=== PATIENT | female | born 1950 | race Caucasian/White ===

== ENCOUNTER 2016-07-21 01:09 | Inpatient (IN) | payer MEDICARE ==
[2016-07-21] VITALS (8 sets, daily range): BP systolic 137–174; BP diastolic 64–92
[~2016-07-21] VITALS: Ht 162.6 cm; Wt 60.3 kg
--- NOTE | ~2016-07-21 | O ---
[place], [place] OPERATIVE NOTE [id number] #: [id number] ROOM: 401 DOCTOR: LIDIA ROSALES,SUSSY BIRTHDATE: [birth year] DOS: GASTROENDOSCOPIC REPORT INDICATION: The patient has presented with chief complaint of anemia, suspected GI bleed. PROCEDURE: Today's procedure part of investigation is colonoscopy. PREMEDICATION: Versed and Diprivan. SCOPE: Olympus forward-viewing colonoscope 10L video. REPORT: After putting the patient in the left lateral position and after application of lubricant to rectal pouch and digital examination, scope was introduced; thereafter, under direct visualization, I advanced through the length of colon without difficulty. Colon mucosa and vascularity cannot be detaily examined due to the presence of retained contrast, which is whitish-tinged throughout the entire length of colon. I suspected that I was about to cecum where solid contrast and stool had mixture, did not allow detailed visualization despite the fact that large volume lavage. The patient extubated, tolerated procedure well. IMPRESSION: Retained contrast all the way to the cecum. PLAN AND DISCUSSION: I did not see any gross pathology in the colon to be noticeable. Her small bowel follow through study has been considered negative. There was no way to evaluate terminal ileum due to the retained contrast. I will organize outpatient colonoscopy in future for assessment of the terminal ileum. Thank you very much indeed for your kind referral. SUSSY MURILLO MD CM:OPRECORD:OPERATIVE NOTE [id number] SUSSY MURILLO MD 07/26/162146 interface
--- NOTE | ~2016-07-21 | O ---
[place], [place] OPERATIVE NOTE [id number] #: [id number] ROOM: 401 DOCTOR: LIDIA ROSALES,SUSSY BIRTHDATE: [birth year] DOS: GASTROENDOSCOPIC REPORT INDICATIONS: The patient has presented with multiple medical problems, among which epigastric distress, dyspepsia, anemia, suspected GI bleed. PROCEDURE: Today's procedure part of investigation is panendoscopy and colonoscopy. PREMEDICATION: Versed and Diprivan. SCOPE: Olympus forward-viewing colonoscope 10L video. REPORT: After putting the patient in the left lateral position and after application of lubricant to the scope, the scope was introduced. Thereafter, under direct visualization, I advanced through the length of esophagus without difficulty. Esophagus cervicothoracic distally within normal limits. Gastric pouch was entered. Gastritis was seen. Gastric erosions, particularly in the greater curvature appreciated, photographed, biopsied. Duodenal bulb, second and third part within normal limits. The patient was extubated, tolerated the procedure well. IMPRESSION: Gastric erosions and gastritis, status post biopsy. PLAN AND DISCUSSION: We are going to continue with Protonix 40 mg daily, soft diet due to the fact that the patient is edentulous that is going to be considered. We are going to proceed with colonoscopy. SUSSY MURILLO MD CM:OPRECORD:OPERATIVE NOTE [id number] SUSSY MURILLO MD 07/26/162137 interface
--- NOTE | ~2016-07-21 | CON ---
[place], [place] REPORT OF CONSULTATION NAME: NAVA MALLORY [facility] #: [id number] UNIT #: [id number] ROOM: 401 DOCTOR: ANGY MONDRAGON ED.D (ALMA) BIRTHDATE: [birth year] DOS: 07/23/2016 HISTORY OF PRESENT ILLNESS: The patient is a 65-year-old female referred by the hospitalist for evaluation of depression. At the present time, this patient is on the 4th floor at [facility]. This patient states that she is , her having in 03/2016, from bladder cancer. She has 3 daughters and 3 sons. She states her one sister, who is very ill with stage 4 colon cancer and she is very worried that she has colon cancer herself. She did find out she does not have cancer at this time about her bowel blockage and she was quite relieved about that. She is of an extremely anxious person and gets depressed quite easily. In addition to her sister being ill and her having , her mother just a few years ago from cancer. Her family physician is Dr. Jeffrey Terry. PAST MEDICAL HISTORY: Pertinent for acute kidney failure, hypertension, hypothyroidism, partial bowel obstruction, sepsis and major depression. MEDICATIONS: She is presently taking acetaminophen, Xanax, Zocor, Norvasc, Prevacid, Cymbalta and Mobic. She states she was self-medicating with the antidiarrheal medications such as Lomotil. SOCIAL HISTORY: She has no substance abuse issues. She was awake, alert and oriented in all 3 spheres. She does admit to being depressed. She states she has never been treated for depression, other than getting Cymbalta as prescribed by Dr. eTrry. I strongly suggested that she follow up with outpatient counseling once she is discharged from the hospital. She has a very strong support network and her grandson was visiting her the patient while I was there. DIAGNOSIS: Major depressive disorder, recurrent. RECOMMENDATIONS: 1. The patient should continue antidepressant medications. 2. The patient should follow up with outpatient counseling. Thank you very much for this consult. ANGY MONDRAGON ED.D CM:CONSTR:REPORT OF CONSULTATION 1604 07/24/16 1316 interface
--- NOTE | ~2016-07-21 | CON ---
[place], [place] REPORT OF CONSULTATION [id number] UNIT #: [id number] ROOM: 401 DOCTOR: LIDIA ROSALESSUSSY BIRTHDATE: [birth year] DOS: 07/24/2016 HISTORY OF PRESENT ILLNESS: The patient has presented with nausea, vomiting, epigastric distress, suspected of small-bowel obstruction. After the CT scan of the abdomen without contrast was done and moderate grade distal small-bowel obstruction with transit point of terminal ileum secondary to bowel wall thickening, inflammatory process versus Crohn's, fibrofatty infiltration concerns such as raised small bowel follow through was ordered after she has some resolution of the symptomatology and results are pending. At the time of admission, white blood cell was 14, H and H of 15 and 46. Lactic acid was 4.3. Her INR was 0.9. Comprehensive metabolic panel: BUN and creatinine of 11 and 1.9, GFR 40. Her electrolytes were balanced. Liver function tests normal except alkaline phosphatase 140. Acute abdominal series follow up. No acute cardiopulmonary, air fluid level. All has been recognized. CBC, normalized white blood cell to 8, H and H of 11 and 34. CEA was normal. Followup abdominal series was done. Normal bowel gas pattern was noticed. Therefore, she was a candidate for further investigation with the small bowel follow through. This is particularly in concern of her report of suspected terminal ileitis of any cost. PAST MEDICAL HISTORY: Associated with hypothyroidism, depression, anxiety, TIA. PAST SURGICAL HISTORY: Cholecystectomy, exploratory laparotomy in mid 80s for abdominal unexplained pain, cervical spine repair. The patient has history of hypertension, hypothyroidism and leukocytosis. SOCIAL HISTORY: Nonsmoker, nonalcohol consumer. FAMILY HISTORY: Ulcerative colitis and hypertension. ALLERGIES: CODEINE. MEDICATIONS: List has been reviewed. REVIEW OF SYSTEMS: HEENT: Denies double vision, blurred vision. RESPIRATORY: Denies shortness of breath. CARDIOVASCULAR: Denies chest pain. DIGESTIVE SYSTEM: Nausea, vomiting, which has since resolved with suspected small-bowel obstruction. PHYSICAL EXAMINATION: GENERAL: Nontoxic at the present time. VITAL SIGNS: Stable. HEENT: Edentulous. NECK: Supple, no thyromegaly. CHEST: Symmetric anatomy, equal expansion. No wheeze, no rhonchi. HEART: Normal sinus rhythm, no gallop, no murmur. ABDOMEN: Flat, soft. No hepato-organomegaly, no tenderness. Bowel sounds present in all quadrants. [place], [place] REPORT OF CONSULTATION NAME: NAVA MALLORY UNIT #: [id number] ROOM: 401 DOCTOR: SUSSY MURILLO MD BIRTHDATE: [birth year] EXTREMITIES: No cyanosis, no pedal edema. NEUROLOGIC: Alert, oriented to time, place and person. IMPRESSION AND PLAN: Resolved small-bowel obstruction. Clinically, no nausea, vomiting. Actually she feels hungry. She is passing gas. Distention of the bowel has been resolved. KUB has been normal on followup. White blood cell has been normal on followup. Small bowel follow through results are pending. As of this minute, I do not see any radiologic report, her potassium was 3.3 today. This is addressed with addition of potassium. OTHER ADJUNCTIVE DIAGNOSES: Hypertension, hypothyroidism, small-bowel obstruction partially and resolved. Other adjunctive diagnoses as outlined in the paragraph of past medical and surgical history. SUSSY MURILLO MD CM:CONSTR:REPORT OF CONSULTATION 1123 07/25/16 0039 interface
[~2016-07-21 01:09] MED LIST: CELEBREX200 MG PO; CELEXA10 MG PO; COREG3.125 MG PO; IBUPROFEN600 MG PO; LISINOPRIL10 M1 PO; PRAVACHOL80 MG PO; SOMA350 MG PO; SYNTHROID0.075 MG PO; TRIAVIL PO; VICODIN ES 7501 TAB PO; XANAX0.25 MG PO; ZOCOR20 MG PO; Zofran4 MG PO
[2016-07-21] MEDS ORDERED: PREVACID15 M1 PO (01:20)
[2016-07-21] MEDS ORDERED: NORVASC5 MG PO (01:20)
[2016-07-21] MEDS ORDERED: CYMBALTA60 MG PO (01:21)
[2016-07-21] MEDS ORDERED: MOBIC15 MG PO (01:21)
[2016-07-21 01:55] LABS: BASO # 0.1 10*3/uL (0.0-0.1); BASO % 0.6 % (0.0-1.0); EOS # 0.1 10*3/uL (0.0-0.4); EOS % 0.3 % (1.0-4.0); HEMATOCRIT 46.4 % (37.0-47.0); HEMOGLOBIN 15.4 g/dl (12.0-16.0); IG # 0.1 10*3/uL (0.0-0.1); LYMPH # 3.1 10*3/uL (1.3-4.4); LYMPH % 21.5 % (27.0-41.0); MEAN CELL VOLUME 88.9 fl (81.0-99.0); MEAN CORPUSCULAR HGB 29.5 pg (27.0-31.0); MEAN CORPUSCULAR HGB CONC 33.2 g/dl (33.0-37.0); MEAN PLATELET VOLUME 9.8 fl (9.6-12.3); MONO # 0.6 10*3/uL (0.1-1.0); MONO % 4.3 % (3.0-9.0); NEUT # 10.5 10*3/uL (2.3-7.9); PLATELET COUNT AUTOMATED 391 10*3/uL (130-400); RED BLOOD COUNT 5.22 10*6/uL (4.10-5.10); WHITE BLOOD COUNT 14.4 10*3/uL (4.8-10.8)
[2016-07-21 01:55] LABS: BILIRUBIN 1+ (NEGATIVE); BLOOD NEGATIVE (NEGATIVE); CLARITY CLEAR (CLEAR); COLOR YELLOW (YELLOW); GLUCOSE NEGATIVE (NEGATIVE); KETONE TRACE (NEGATIVE); LEUKO ESTERASE NEGATIVE (NEGATIVE); NITRITE NEGATIVE (NEGATIVE); PH 5.5 (5.0-9.0); PROTEIN 1+ (NEGATIVE); SPECIFIC GRAVITY 1.025 (1.005-1.030); UROBILINOGEN 0.2 E.U./dl (0.2-1.0)
[2016-07-21 02:05] LABS: INTERNATIONAL NORM RATIO 0.9 (2.0-3.5); PROTHROMBIN TIME 9.9 SECONDS (9.0-12.4)
[2016-07-21 02:12] LABS: ALBUMIN 4.7 gm/dl (3.1-4.5); ALKALINE PHOSPHATASE 134 U/L (45-117); BILIRUBIN, TOTAL 0.5 mg/dl (0.2-1.0); BUN 11 mg/dl (7-24); CARBON DIOXIDE 25 mmol/L (21-32); CHLORIDE 95 mmol/L (98-107); EST GLOM FILT AFRICAN AMERICAN 40 ml/min; GLUCOSE 118 mg/dL (65-99); MAGNESIUM 2.2 mg/dL (1.5-2.1); POTASSIUM 4.1 mmol/L (3.5-5.1); SGOT/AST 28 IU/L (3-35); SGPT/ALT 25 U/L (12-78); SODIUM 135 mmol/L (136-145); TOTAL PROTEIN 8.8 gm/dL (6.4-8.2)
[2016-07-21 02:13] LABS: C-REACTIVE PROTEIN < 0.29 MG/DL (0-0.3); TROPONIN I < 0.015 ng/ml (<0.045)
[2016-07-21 02:14] LABS: HYALINE CAST 35-40
[2016-07-21 02:15] LABS: BACTERIA TRACE; EPITHELIAL CELLS 20-25; URINE REFLEX COMMENT NO (NO)
[2016-07-21 03:52] LABS: LA>2 REFLEX 2 HR DRAW NOW
[2016-07-21] MEDS ORDERED: PAIN RELIEF EX500 MG PO (05:47)
[2016-07-22] VITALS: BP 165/85
[2016-07-22 06:36] LABS: BASO % 0.2 % (0.0-1.0); EOS % 0.1 % (1.0-4.0); LYMPH # 1.6 10*3/uL (1.3-4.4); LYMPH % 18.7 % (27.0-41.0); MEAN CELL VOLUME 89.3 fl (81.0-99.0); MEAN CORPUSCULAR HGB CONC 33.6 g/dl (33.0-37.0); MEAN PLATELET VOLUME 10.2 fl (9.6-12.3); MONO # 0.4 10*3/uL (0.1-1.0); MONO % 4.5 % (3.0-9.0); NEUT # 6.6 10*3/uL (2.3-7.9); NEUT % 76.2 % (47.0-73.0); RED BLOOD COUNT 3.83 10*6/uL (4.10-5.10); RED CELL DISTRI WIDTH 12.7 % (0-14.5); WHITE BLOOD COUNT 8.7 10*3/uL (4.8-10.8)
[2016-07-22 06:49] LABS: HEMATOCRIT 34.2 % (37.0-47.0); HEMOGLOBIN 11.5 g/dl (12.0-16.0); PLATELET COUNT AUTOMATED 267 10*3/uL (130-400)
[2016-07-22 07:03] LABS: ALBUMIN 3.2 gm/dl (3.1-4.5); ALKALINE PHOSPHATASE 90 U/L (45-117); BILIRUBIN, TOTAL 0.3 mg/dl (0.2-1.0); BUN 6 mg/dl (7-24); CARBON DIOXIDE 22 mmol/L (21-32); CHLORIDE 103 mmol/L (98-107); EST GLOM FILT AFRICAN AMERICAN > 60 ml/min; GLUCOSE 97 mg/dL (65-99); POTASSIUM 3.6 mmol/L (3.5-5.1); SGOT/AST 24 IU/L (3-35); SGPT/ALT 18 U/L (12-78); SODIUM 134 mmol/L (136-145); TOTAL PROTEIN 6.2 gm/dL (6.4-8.2)
[2016-07-22 08:00] VITALS: BP 167/85
[2016-07-22 12:00] VITALS: BP 135/54
[2016-07-22 16:00] VITALS: BP 142/68
[2016-07-23] VITALS: BP 146/67
[2016-07-23 08:00] VITALS: BP 146/89
[2016-07-23 08:22] LABS: BASO # 0.1 10*3/uL (0.0-0.1); BASO % 0.7 % (0.0-1.0); EOS % 0.1 % (1.0-4.0); HEMATOCRIT 30.5 % (37.0-47.0); HEMOGLOBIN 10.3 g/dl (12.0-16.0); LYMPH # 2.5 10*3/uL (1.3-4.4); LYMPH % 34.1 % (27.0-41.0); MEAN CELL VOLUME 88.4 fl (81.0-99.0); MEAN CORPUSCULAR HGB 29.9 pg (27.0-31.0); MEAN CORPUSCULAR HGB CONC 33.8 g/dl (33.0-37.0); MEAN PLATELET VOLUME 9.9 fl (9.6-12.3); MONO # 0.5 10*3/uL (0.1-1.0); MONO % 6.5 % (3.0-9.0); NEUT # 4.3 10*3/uL (2.3-7.9); NEUT % 58.5 % (47.0-73.0); PLATELET COUNT AUTOMATED 243 10*3/uL (130-400); RED BLOOD COUNT 3.45 10*6/uL (4.10-5.10); WHITE BLOOD COUNT 7.3 10*3/uL (4.8-10.8)
[2016-07-23 08:37] LABS: ALKALINE PHOSPHATASE 80 U/L (45-117); BILIRUBIN, TOTAL 0.3 mg/dl (0.2-1.0); BUN 5 mg/dl (7-24); CARBON DIOXIDE 25 mmol/L (21-32); CHLORIDE 106 mmol/L (98-107); EST GLOM FILT AFRICAN AMERICAN > 60 ml/min; GLUCOSE 86 mg/dL (65-99); POTASSIUM 3.2 mmol/L (3.5-5.1); SGOT/AST 28 IU/L (3-35); SGPT/ALT 18 U/L (12-78); SODIUM 136 mmol/L (136-145); TOTAL PROTEIN 5.7 gm/dL (6.4-8.2)
[2016-07-23 12:00] VITALS: BP 136/78
[2016-07-23 16:00] VITALS: BP 104/44
[2016-07-23 20:00] VITALS: BP 136/86
[2016-07-24] VITALS: BP 140/62
[2016-07-24 07:10] LABS: BASO # 0.1 10*3/uL (0.0-0.1); BASO % 1.2 % (0.0-1.0); EOS % 0.2 % (1.0-4.0); HEMATOCRIT 31.3 % (37.0-47.0); HEMOGLOBIN 10.5 g/dl (12.0-16.0); LYMPH # 2.5 10*3/uL (1.3-4.4); LYMPH % 41.8 % (27.0-41.0); MEAN CELL VOLUME 88.7 fl (81.0-99.0); MEAN CORPUSCULAR HGB 29.7 pg (27.0-31.0); MEAN CORPUSCULAR HGB CONC 33.5 g/dl (33.0-37.0); MEAN PLATELET VOLUME 10.3 fl (9.6-12.3); MONO # 0.5 10*3/uL (0.1-1.0); MONO % 7.5 % (3.0-9.0); PLATELET COUNT AUTOMATED 224 10*3/uL (130-400); RED BLOOD COUNT 3.53 10*6/uL (4.10-5.10); RED CELL DISTRI WIDTH 13.2 % (0-14.5)
[2016-07-24 07:37] LABS: BUN 4 mg/dl (7-24); CARBON DIOXIDE 24 mmol/L (21-32); CHLORIDE 105 mmol/L (98-107); EST GLOM FILT AFRICAN AMERICAN > 60 ml/min; GLUCOSE 77 mg/dL (65-99); POTASSIUM 3.3 mmol/L (3.5-5.1); SODIUM 136 mmol/L (136-145)
[2016-07-24 08:00] VITALS: BP 164/88
[2016-07-24 12:00] VITALS: BP 152/79
[2016-07-24 16:00] VITALS: BP 154/89
[2016-07-24 20:00] VITALS: BP 132/60
[2016-07-25] VITALS: BP 103/52
[2016-07-25 07:26] LABS: BUN 4 mg/dl (7-24); CARBON DIOXIDE 27 mmol/L (21-32); CHLORIDE 105 mmol/L (98-107); EST GLOM FILT AFRICAN AMERICAN > 60 ml/min; GLUCOSE 73 mg/dL (65-99); POTASSIUM 4.1 mmol/L (3.5-5.1); SODIUM 140 mmol/L (136-145)
[2016-07-25 08:00] VITALS: BP 131/79
[2016-07-25 12:00] VITALS: BP 182/90
[2016-07-25 16:00] VITALS: BP 141/83
[2016-07-25 20:00] VITALS: BP 168/79
[2016-07-26] VITALS (9 sets, daily range): BP systolic 104–167; BP diastolic 55–87
[2016-07-26 07:10] LABS: BASO # 0.1 10*3/uL (0.0-0.1); BASO % 0.6 % (0.0-1.0); EOS # 0.1 10*3/uL (0.0-0.4); EOS % 0.7 % (1.0-4.0); HEMOGLOBIN 12.4 g/dl (12.0-16.0); LYMPH # 2.3 10*3/uL (1.3-4.4); LYMPH % 28.1 % (27.0-41.0); MEAN CELL VOLUME 88.7 fl (81.0-99.0); MEAN CORPUSCULAR HGB 29.3 pg (27.0-31.0); MEAN CORPUSCULAR HGB CONC 33.1 g/dl (33.0-37.0); MEAN PLATELET VOLUME 10.4 fl (9.6-12.3); MONO # 0.6 10*3/uL (0.1-1.0); MONO % 7.1 % (3.0-9.0); NEUT # 5.1 10*3/uL (2.3-7.9); NEUT % 63.3 % (47.0-73.0); PLATELET COUNT AUTOMATED 285 10*3/uL (130-400); RED BLOOD COUNT 4.23 10*6/uL (4.10-5.10); RED CELL DISTRI WIDTH 13.3 % (0-14.5); WHITE BLOOD COUNT 8.1 10*3/uL (4.8-10.8)
[2016-07-26 07:13] LABS: HEMATOCRIT 37.5 % (37.0-47.0)
[2016-07-27] VITALS: BP 145/87
[2016-07-27 07:00] LABS: BASO # 0.1 10*3/uL (0.0-0.1); BASO % 0.9 % (0.0-1.0); EOS # 0.1 10*3/uL (0.0-0.4); HEMATOCRIT 32.8 % (37.0-47.0); HEMOGLOBIN 10.9 g/dl (12.0-16.0); LYMPH # 2.9 10*3/uL (1.3-4.4); MEAN CELL VOLUME 89.9 fl (81.0-99.0); MEAN CORPUSCULAR HGB 29.9 pg (27.0-31.0); MEAN CORPUSCULAR HGB CONC 33.2 g/dl (33.0-37.0); MEAN PLATELET VOLUME 10.2 fl (9.6-12.3); MONO # 0.5 10*3/uL (0.1-1.0); MONO % 7.8 % (3.0-9.0); NEUT # 3.1 10*3/uL (2.3-7.9); NEUT % 46.9 % (47.0-73.0); PLATELET COUNT AUTOMATED 267 10*3/uL (130-400); RED BLOOD COUNT 3.65 10*6/uL (4.10-5.10); RED CELL DISTRI WIDTH 13.3 % (0-14.5); WHITE BLOOD COUNT 6.7 10*3/uL (4.8-10.8)
[2016-07-27 07:31] LABS: ALKALINE PHOSPHATASE 81 U/L (45-117); BILIRUBIN, TOTAL 0.3 mg/dl (0.2-1.0); BUN 3 mg/dl (7-24); CARBON DIOXIDE 24 mmol/L (21-32); CHLORIDE 105 mmol/L (98-107); EST GLOM FILT AFRICAN AMERICAN > 60 ml/min; GLUCOSE 91 mg/dL (65-99); MAGNESIUM 1.9 mg/dL (1.5-2.1); POTASSIUM 3.1 mmol/L (3.5-5.1); SGOT/AST 17 IU/L (3-35); SGPT/ALT 15 U/L (12-78); SODIUM 141 mmol/L (136-145); TOTAL PROTEIN 5.8 gm/dL (6.4-8.2)
[2016-07-27 08:00] VITALS: BP 150/68
[2016-07-27 12:00] VITALS: BP 144/70
[2016-07-27] MEDS ORDERED: LOSARTAN POTASS50 M1 PO (14:07)
[2016-07-27] MEDS ORDERED: SYNTHROID RP0.1 MG PO (14:08)
== END 2016-07-27 15:05 | disposition home or self-care (01) | DRG 871 ==
LOC: ED 01:09 → 4E 03:39 → EDHOLD 03:39 → 4E 03:57
PROVIDERS: Emergency Medicine; Emergency Medicine Emergency Medical Services; Family Medicine; Internal Medicine; Internal Medicine Hospice and Palliative Medicine
PROC: 0DB68ZX Excision of Stomach, Via Natural or Artificial Opening Endoscopic, Diagnostic (ICD-10-PCS; principal; 2016-07-26)
PROC: 0DJD8ZZ Inspection of Lower Intestinal Tract, Via Natural or Artificial Opening Endoscopic (ICD-10-PCS; principal; 2016-07-26)
DX: A41.9 Sepsis, unspecified organism (principal); N17.0 Acute kidney failure with tubular necrosis; E87.2 Acidosis; K56.60 Unspecified intestinal obstruction; E44.1 Mild protein-calorie malnutrition; M50.20 Other cervical disc displacement, unspecified cervical region; E87.1 Hypo-osmolality and hyponatremia; F33.9 Major depressive disorder, recurrent, unspecified; E83.41 Hypermagnesemia; E03.9 Hypothyroidism, unspecified; I10 Essential (primary) hypertension; D64.9 Anemia, unspecified; E87.6 Hypokalemia; M51.24 Other intervertebral disc displacement, thoracic region; K29.70 Gastritis, unspecified, without bleeding; K25.9 Gastric ulcer, unspecified as acute or chronic, without hemorrhage or perforation; K59.00 Constipation, unspecified; F41.9 Anxiety disorder, unspecified; Z86.73 Personal history of transient ischemic attack (TIA), and cerebral infarction without residual deficits; Z80.0 Family history of malignant neoplasm of digestive organs; Z90.49 Acquired absence of other specified parts of digestive tract; Z82.49 Family history of ischemic heart disease and other diseases of the circulatory system; Z83.79 Family history of other diseases of the digestive system; Z83.49 Family history of other endocrine, nutritional and metabolic diseases; Z88.5 Allergy status to narcotic agent; Z88.8 Allergy status to other drugs, medicaments and biological substances; Z79.1 Long term (current) use of non-steroidal anti-inflammatories (NSAID); Z79.899 Other long term (current) drug therapy; Z68.22 Body mass index [BMI] 22.0-22.9, adult

== ENCOUNTER 2017-10-13 13:30 | Emergency (ER) | payer MEDICARE ==
[~2017-10-13] VITALS: Ht 167.6 cm; Wt 63.5 kg
--- NOTE | ~2017-10-13 | EKG ---
[place], [place] ELECTROCARDIOGRAM REPORT NAME: NAVA MALLORY UNIT #: [id number] ROOM: DOCTOR: EPIPHANY DRAFT REPORT BIRTHDATE: [birth year] [facility] Test Date: 2017-10-13 Test Time: 13:43:22 Pat Name: NAVA MALLORY Department: Room: Gender: F Adult Literacy Teacher: : 1950 Requested By: HENRY ENAMORADO Order Number: [id number] Reading MD: Bruce Ingram MD Measurements Intervals [place] Rate: 68 P: 39 [place]: 148 QRS: 43 QRSD: 91 T: 32 QT: 417 QTc: 444 Interpretive Statements Sinus rhythm Electronically Signed On 10-13-2017 19:21:48 PDT by Bruce Ingram MD CM:EKGRPT:ELECTROCARDIOGRAM REPORT 1343 HENRY GOODSON DRAFT REPORT HENRY ENAMORADO M.D.
[~2017-10-13 13:30] MED LIST changes: +CYMBALTA60 MG PO; +LOSARTAN POTASS50 M1 PO; +MOBIC15 MG PO; +NORVASC5 MG PO; +PAIN RELIEF EX500 MG PO; +PREVACID15 M1 PO; +SYNTHROID RP0.1 MG PO
[2017-10-13 13:52] LABS: BASO # 0.1 10*3/uL (0.0-0.1); BASO % 0.9 % (0.0-1.0); EOS # 0.1 10*3/uL (0.0-0.4); EOS % 0.9 % (1.0-4.0); HEMATOCRIT 35.8 % (37.0-47.0); HEMOGLOBIN 11.7 g/dl (12.0-16.0); LYMPH # 2.2 10*3/uL (1.3-4.4); LYMPH % 39.6 % (27.0-41.0); MEAN CELL VOLUME 89.5 fl (81.0-99.0); MEAN CORPUSCULAR HGB 29.3 pg (27.0-31.0); MEAN CORPUSCULAR HGB CONC 32.7 g/dl (33.0-37.0); MEAN PLATELET VOLUME 9.4 fl (9.6-12.3); MONO # 0.4 10*3/uL (0.1-1.0); MONO % 7.8 % (3.0-9.0); NEUT # 2.8 10*3/uL (2.3-7.9); NEUT % 50.6 % (47.0-73.0); PLATELET COUNT AUTOMATED 241 10*3/uL (130-400); RED CELL DISTRI WIDTH 12.3 % (0-14.5); WHITE BLOOD COUNT 5.5 10*3/uL (4.8-10.8)
[2017-10-13 14:10] LABS: ALBUMIN 3.5 gm/dl (3.1-4.5); ALKALINE PHOSPHATASE 110 U/L (45-117); BUN 10 mg/dl (7-24); CHLORIDE 107 mmol/L (98-107); CREATININE 1.01 mg/dL (0.55-1.02); POTASSIUM 4.2 mmol/L (3.5-5.1); SGOT/AST 17 IU/L (3-35); SGPT/ALT 23 U/L (12-78); SODIUM 139 mmol/L (136-145); TOTAL PROTEIN 6.9 gm/dL (6.4-8.2)
[2017-10-13 15:10] LABS: BILIRUBIN NEGATIVE (NEGATIVE); BLOOD NEGATIVE (NEGATIVE); CLARITY CLEAR (CLEAR); COLOR YELLOW (YELLOW); GLUCOSE NEGATIVE (NEGATIVE); KETONE NEGATIVE (NEGATIVE); LEUKO ESTERASE NEGATIVE (NEGATIVE); NITRITE NEGATIVE (NEGATIVE); UROBILINOGEN 0.2 E.U./dl (0.2-1.0)
[2017-10-13 15:23] LABS: BACTERIA 2+; RBC 0-2 rbc/hpf (0-2)
== END 2017-10-13 16:19 | disposition home or self-care (01) ==
LOC: ED 13:30
PROVIDERS: Emergency Medicine
DX: R55 Syncope and collapse (principal); E03.9 Hypothyroidism, unspecified; I10 Essential (primary) hypertension; Z88.6 Allergy status to analgesic agent; Z88.8 Allergy status to other drugs, medicaments and biological substances; Z79.899 Other long term (current) drug therapy; Z86.73 Personal history of transient ischemic attack (TIA), and cerebral infarction without residual deficits

== ENCOUNTER → 2017-10-14 | Outpatient (CLI) | payer MEDICARE ==
--- NOTE | ~2017-10-14 | HM ---
[place], [place] HOLTER MONITOR REPORT [id number] UNIT #: [id number] ROOM: DOCTOR: MIKE BARLOW MD BIRTHDATE: [birth year] DOS: 10/17/2017 The study was recorded from 10/14/2017 through 10/16/2017. It was analyzed, interpreted and dictated on 10/17/2017. INDICATIONS: Palpitations and syncope. FINDINGS: The patient was monitored utilizing a Holter device for 48 hours. The basic rhythm was normal sinus. Average heart rate was 78 with heart rates ranging in sinus rhythm from 57-135 beats per minute. No ventricular arrhythmias were noted. There was no ventricular tachycardia or premature ventricular contractions. Occasional premature atrial contractions were noted including one 3-beat run of PACs. This occurred at 1:21 p.m. There was no SVT and no prolonged pause noted. The patient did not make any dairy entries. IMPRESSION: Essentially normal 48-hour Holter monitor with occasional premature atrial contractions and one 3-beat run of PACs recorded. MIKE BARLOW MD CM:HOLTER:HOLTER MONITOR REPORT 1622 1659 MIKE BARLOW MD
== END | disposition home or self-care (01) ==
LOC: CARD 10:09
DX: R00.2 Palpitations (principal); R55 Syncope and collapse

== ENCOUNTER → 2018-01-07 | Outpatient (CLI) | payer MEDICARE | END | disposition home or self-care (01) | LOC: MAMMO 08:33 | DX: Z12.31 Encounter for screening mammogram for malignant neoplasm of breast (principal) ==

== ENCOUNTER 2018-07-11 | Inpatient (IN) | payer MEDICARE ==
[~2018-07-11] VITALS: Ht 162.6 cm; Wt 60.0 kg
[2018-07-11] VITALS (7 sets, daily range): BP systolic 136–157; BP diastolic 61–89
[~2018-07-11] MED LIST changes: +ULTRAM50 MG PO; +ZOFRAN4 MG PO
--- NOTE | ~2018-07-11 | EKG ---
[place], [place] ELECTROCARDIOGRAM REPORT NAME: NAVA MALLORY UNIT #: [id number] ROOM: [facility] DOCTOR: HAMZAH DRAFT REPORT BIRTHDATE: [birth year] [facility] Test Date: 2018-07-11 Test Time: 12:26:42 Pat Name: NAVA MALLORY Department: Room: [facility] 1 Gender: F Fisher Diving: MARIO : 1950 Requested By: IZABELLA MULTANI Order Number: [id number] Reading MD: Luther Maravilla Measurements Intervals [place] Rate: 90 P: 56 [place]: 168 QRS: 67 QRSD: 97 T: 46 QT: 419 QTc: 513 Interpretive Statements Sinus rhythm RSR' in V1 or V2, right VCD or RVH Nonspecific T abnormalities, anterior leads Prolonged QT interval Compared to ECG 10/13/2017 13:43:22 Right ventricular hypertrophy now present RSR' in V1 or V2 now present T-wave abnormality now present Prolonged QT interval now present Electronically Signed On 07-11-2018 11:02:22 PDT by Luther Maravilla CM:EKGRPT:ELECTROCARDIOGRAM REPORT 1226 1102 IZABELLA OQUENDO DRAFT REPORT IZABELLA MULTANI DO
--- NOTE | ~2018-07-11 | CON ---
[place], [place] REPORT OF CONSULTATION NAME: NAVA MALLORY [facility] #: [id number] UNIT #: [id number] ROOM: 517 DOCTOR: GRAHAM CAMERON MD BIRTHDATE: [birth year] DOS: 07/12/2018 REASON FOR CONSULTATION: Recurrent syncope. HISTORY OF PRESENT ILLNESS: The patient is a 67-year-old patient with history of hypertension, acid reflux, admitted for nausea, vomiting. Apparently the patient had near syncope like recently and sustained a right rib fracture. She was seen in the Emergency Room on and was discharged home on tramadol. The patient noted to have significant nausea and vomiting and was presented to the hospital. Cardiology consulted for her "recurrent syncope". Actually the patient denies any actual syncopal attacks since she felt like her neck area gets tight and she felt weak and her knees gave out and she fell to the ground, but she did not lose her consciousness. No bladder or bowel incontinence. Prior to this, she denies any chest pain, shortness of breath or palpitations. Otherwise, she denies any exertional chest pains or exertional shortness of breath. No neurologic symptoms. No genitourinary symptoms, the patient is complaining of some left-sided chest wall pain. No fever, chills, no hemoptysis. Her nausea and vomiting is much better now after therapy. REVIEW OF SYSTEMS: Ten systems negative except as mentioned above. PAST MEDICAL HISTORY: History of hypertension, hypothyroidism, back pain, history of TIA, anxiety and depression. PAST SURGICAL HISTORY: History of cholecystectomy, cervical spine surgery. SOCIAL HISTORY: The patient does not drink alcohol. Does not smoke and does not use illicit drugs. ALLERGIES: Reviewed. HOME MEDICATIONS: Reviewed. FAMILY HISTORY: Mother in her 80s from cancer. History of hypertension. Father in his 60s from lung cancer and had hypertension. HOME MEDICATIONS: Reviewed. PHYSICAL EXAMINATION: VITAL SIGNS: Blood pressure 138/72, pulse 95, respiration is 18, weight 60.4 kilos, BMI 22.7. GENERAL: Alert, comfortable, in no acute distress. HEAD AND NECK: Neck supple, no distended neck veins, no carotid bruit. EENT: Pupils round, equal. No jaundice. Tongue was moist and pharynx clear. NECK: Supple, no distended neck veins, no carotid bruit. CHEST: Symmetrical. The patient has mild tenderness in the mid axillary area. HEART: Regular rhythm, no S3. Grade 1/6 systolic murmur. LUNGS: Clear to auscultation bilaterally. ABDOMEN: Benign, nontender. Bowel sounds normal. EXTREMITIES: Showed no edema. Distal pulses palpable. [place], [place] REPORT OF CONSULTATION NAME: NAVA MALLORY UNIT #: [id number] ROOM: [facility] DOCTOR: NISHA ROSALES,GRAHAM BIRTHDATE: [birth year] SKIN: Warm and dry. No cyanosis, no clubbing. RECTAL: Deferred. GENITOURINARY: Deferred. NEUROLOGIC: The patient is alert, oriented. No focal neurologic deficit. REVIEW OF THE DIAGNOSTIC TESTS: EKG, labs and imaging studies: EKG showed normal sinus rhythm with T-wave inversion V1 and V2. CBC, chemistry, cardiac enzymes reviewed. Cardiac troponins are negative x 3, CPK 297, CK-MB 2.4. IMPRESSION: 1. Near syncopal episode. 2. Hypertension. 3. Nausea and vomiting, possibly related to medication. 4. Acid reflux. 5. Rib fracture due to recent fall. 6. Hypothyroidism. RECOMMENDATIONS: The patient blood pressure and heart rate are stable. She denies any exertional chest pain, shortness of breath. She wanted to go home today. I would recommend a 2-week cardiac event monitor to rule out shelley or tachyarrhythmias due to her recurrent or near syncopal attacks. Lexiscan stress test to rule out ischemia due to her CAD risk factors and abnormal EKG. Recommend 2D echo for LV function and valvular function due to her hypertension and also her heart murmur. The patient may need implantable loop recorder. The event monitor is unremarkable. No family at bedside at the time of my examination. We will arrange for outpatient above recommended tests since the patient wanted to go home today. She is advised to watch her blood pressure, heart rate and avoid any dehydration at home. The above treatment plan was discussed with the patient and all questions were answered. GRAHAM CAMERON MD CM:CONSTR:REPORT OF CONSULTATION 2126 07/13/18 0338 interface
[2018-07-11] MEDS ORDERED: CELEBREX50 MG PO (00:09)
[2018-07-11 00:45] LABS: BASO % 0.4 % (0.0-1.0); EOS % 0.3 % (1.0-4.0); HEMATOCRIT 38.6 % (37.0-47.0); HEMOGLOBIN 13.2 g/dl (12.0-16.0); LYMPH # 1.4 10*3/uL (1.3-4.4); LYMPH % 17.6 % (27.0-41.0); MEAN CELL VOLUME 89.1 fl (81.0-99.0); MEAN CORPUSCULAR HGB 30.5 pg (27.0-31.0); MEAN CORPUSCULAR HGB CONC 34.2 g/dl (33.0-37.0); MEAN PLATELET VOLUME 9.8 fl (9.6-12.3); MONO # 0.4 10*3/uL (0.1-1.0); MONO % 5.2 % (3.0-9.0); NEUT # 5.9 10*3/uL (2.3-7.9); NEUT % 76.2 % (47.0-73.0); PLATELET COUNT AUTOMATED 309 10*3/uL (130-400); RED BLOOD COUNT 4.33 10*6/uL (4.10-5.10); RED CELL DISTRI WIDTH 13.2 % (0-14.5); WHITE BLOOD COUNT 7.7 10*3/uL (4.8-10.8)
[2018-07-11 01:00] LABS: ALBUMIN 3.9 gm/dl (3.1-4.5); ALKALINE PHOSPHATASE 127 U/L (45-117); BUN 9 mg/dl (7-24); CHLORIDE 105 mmol/L (98-107); CREATININE 0.99 mg/dL (0.55-1.02); LIPASE 53 U/L (73-393); POTASSIUM 3.7 mmol/L (3.5-5.1); SGOT/AST 29 IU/L (3-35); SGPT/ALT 34 U/L (12-78); SODIUM 137 mmol/L (136-145); TOTAL PROTEIN 7.8 gm/dL (6.4-8.2)
--- NOTE | 2018-07-11 01:02 | NUR ---
INFUSION OF 500NS INITIATED BY EMS COMPLETED.1L NS INITIATED PER EMAR.
--- NOTE | 2018-07-11 01:43 | NUR ---
PT REPORTS SUDDEN ONSET SHAKING.PT PROVIDED WARM BLANKETS.MEDICATED PER EMAR WITH XANAX.STEPHANIE LAURA NOTIFIED.
--- NOTE | 2018-07-11 03:00 | NUR ---
Time: 299 A 67 year old FEMALE admitted to 5E under services of TANESHA BASS DO. Pt. arrived via ambulance from ER. Chief complaint: INTRACTABLE NAUSEA AND VOMITING. RONAK MORAN
--- NOTE | 2018-07-11 11:00 | NUR ---
PHYSICIAN NOTIFIED THAT PT MED REC NEEDS UPDATED, PT REQUESTING SOMA AND XANAX. AWAITING NEW ORDERS AT THIS TIME.
--- NOTE | 2018-07-11 12:15 | NUR ---
PT GIVEN TORADOL AT THIS TIME THROUGH IV TO RAC. IV SITE IS HARD TO FLUSH BUT GIVING SMALL AMOUNT OF BLOOD RETURN. UPON TRYING TO RUN PHENERGAN VIA SYRINGE PUMP, SYRINGE PUMP CONTINUES TO ALARM HIGH PRESSURE. PT REQUESTS THAT IV SITE TO RAC BE DISCONTINUED, WILL ATTEMPT NEW IV SITE.
--- NOTE | 2018-07-11 12:45 | NUR ---
MULTIPLE ATTEMPTS TO OBTAIN IV SITE BY 3 NURSES INEFFECTIVE. PT REQUESTS NOT TO BE STUCK AGAIN FOR IV SITE. PHYSICIAN NOTIFIED. NEW ORDERS OBTAINED FOR PO ZOFRAN AND IV PHENERGAN PUT ON HOLD AT THIS TIME.
[2018-07-11] MEDS ORDERED: AMITRIPTYLINE50 MG PO (12:55)
--- NOTE | 2018-07-11 14:08 | NUR ---
PT GIVEN SOMA AND XANAX AT THIS TIME FOR CHRONIC BACK PAIN AND ANXIETY. WILL MONITOR FOR EFFECTIVENESS. CALL LIGHT IN REACH.
--- NOTE | 2018-07-11 14:50 | NUR ---
PT GIVEN ZOFRAN PO FOR C/O NAUSEA. WILL MONITOR FOR EFFECTIVENESS.
--- NOTE | 2018-07-11 15:00 | NUR ---
PT STATES THAT SOMA AND XANAX EFFECTIVE AT THIS TIME.
--- NOTE | 2018-07-11 15:50 | NUR ---
ZOFRAN EFFECTIVE PER PT.
--- NOTE | 2018-07-11 22:52 | NUR ---
PATIENT VERY TEARFUL, AND AXIOUS. MEDICATED WITH XANEX.PATIENT ALSO MEDICATED WITH SOMA PER REQUEST. WILL CONTINUE TO MONITOR.
[2018-07-12] VITALS: BP 144/66
--- NOTE | 2018-07-12 00:26 | NUR ---
PATIENT C/O NAUSEA, UNABLE TO SLEEP AND A HEADACHE.MEDICATED WITH TYLENOL, ZOFRAN AND RESTORIL. WILL CHECK EFFECTIVENESS.
--- NOTE | 2018-07-12 04:00 | NUR ---
PATIENT SLEEPING, RESTORIL EFFECTIVE. NO SIGNS OF DISTRESS, RESPIRATIONS EASY, NON LABORED. BED IN LOWEST POSITION,CALL LIGHT WITHIN REACH. WILL CONTINUE TO MONITOR.
--- NOTE | 2018-07-12 05:24 | NUR ---
PATIENT C/O HEADACHE.MEDICATED WITH TYLENOL. WILL CONTINUE TO MONITOR
[2018-07-12 06:21] LABS: BASO # 0.1 10*3/uL (0.0-0.1); BASO % 0.6 % (0.0-1.0); EOS # 0.1 10*3/uL (0.0-0.4); EOS % 0.6 % (1.0-4.0); HEMATOCRIT 38.4 % (37.0-47.0); HEMOGLOBIN 12.9 g/dl (12.0-16.0); LYMPH # 3.5 10*3/uL (1.3-4.4); LYMPH % 40.6 % (27.0-41.0); MEAN CELL VOLUME 90.6 fl (81.0-99.0); MEAN CORPUSCULAR HGB 30.4 pg (27.0-31.0); MEAN CORPUSCULAR HGB CONC 33.6 g/dl (33.0-37.0); MONO # 0.7 10*3/uL (0.1-1.0); MONO % 8.6 % (3.0-9.0); NEUT # 4.3 10*3/uL (2.3-7.9); NEUT % 49.4 % (47.0-73.0); PLATELET COUNT AUTOMATED 294 10*3/uL (130-400); RED BLOOD COUNT 4.24 10*6/uL (4.10-5.10); RED CELL DISTRI WIDTH 13.6 % (0-14.5); WHITE BLOOD COUNT 8.6 10*3/uL (4.8-10.8)
[2018-07-12 06:38] LABS: BUN 12 mg/dl (7-24); CHLORIDE 107 mmol/L (98-107); CREATININE 0.95 mg/dL (0.55-1.02); PHOSPHOROUS 3.2 mg/dL (2.5-4.9); POTASSIUM 3.3 mmol/L (3.5-5.1); SODIUM 137 mmol/L (136-145)
[2018-07-12 08:00] VITALS: BP 138/72
[2018-07-12] MEDS ORDERED: AMITRIPTYLINE100 M1 PO (08:41)
--- NOTE | 2018-07-12 09:37 | NUR ---
DR. CAMERON'S ANSWERING SERVICE NOTIFIED OF CONSULT RE: RECURRENT SYNCOPE
--- NOTE | 2018-07-12 10:20 | NUR ---
ADMINISTERED PO ZOFRAN X 1 ORDERED FOR NAUSEA ASSOCIATED WITH TAKING PO POTASSIUM SUPPLEMENTS- PATIENT TOOK 20MEQ OUT OF 40MEQ ORDERED DOSE, REFUSED THE OTHER 20MEQ, STATES MAKES HER TOO SICK.
[2018-07-12] MEDS ORDERED: ZOFRAN4 MG PO (11:26)
--- NOTE | 2018-07-12 11:35 | NUR ---
DR. CAMERON IN TO SEE PATIENT RE: PLAN OF CARE. HIS RECCOMMENDATIONS ARE TO OBTAIN ECHOCARDIOGRAM AND STRESS TEST EITHER TOMORROW INPATIENT, OR ANOTHER TIME OUTPATIENT IF DISCHARGED TODAY. DR. Javier MULTANI NOTIFIED OF THIS.
--- NOTE | 2018-07-12 13:14 | NUR ---
Discharge instructions reviewed with patient/family. Patient receptive and verbalizes understanding. Follow-up care arranged. Written instructions given to patient/family. PATIENT AWAITING RIDE HOME FROM FAMILY MEMBER. ZOHAIB CRESPO
--- NOTE | 2018-07-12 13:24 | NUR ---
PATIENT DISCHARGED TO FRONT LOBBY BY WHEELCHAIR, ACCOMPANIED BY [facility], FOR TRANSPORT HOME BY PRIVATE VEHICLE WITH FAMILY MEMBER.
== END 2018-07-12 13:30 | disposition home or self-care (01) | DRG 392 ==
LOC: ED → EDHOLD 02:12 → 5E 02:38
PROVIDERS: Internal Medicine; Physician Assistant; ADMIT Internal Medicine
DX: R11.2 Nausea with vomiting, unspecified (principal); S22.41XA Multiple fractures of ribs, right side, initial encounter for closed fracture; E44.1 Mild protein-calorie malnutrition; R00.0 Tachycardia, unspecified; E78.5 Hyperlipidemia, unspecified; K21.9 Gastro-esophageal reflux disease without esophagitis; R01.1 Cardiac murmur, unspecified; R55 Syncope and collapse; F41.9 Anxiety disorder, unspecified; F32.9 Major depressive disorder, single episode, unspecified; E87.6 Hypokalemia; E83.41 Hypermagnesemia; E03.9 Hypothyroidism, unspecified; I10 Essential (primary) hypertension; W18.30XA Fall on same level, unspecified, initial encounter; Y92.098 Other place in other non-institutional residence as the place of occurrence of the external cause; Y99.8 Other external cause status; Z88.5 Allergy status to narcotic agent; Z88.8 Allergy status to other drugs, medicaments and biological substances; Y93.89 Activity, other specified; Z80.0 Family history of malignant neoplasm of digestive organs; Z90.49 Acquired absence of other specified parts of digestive tract; Z80.1 Family history of malignant neoplasm of trachea, bronchus and lung; Z83.49 Family history of other endocrine, nutritional and metabolic diseases; Z82.49 Family history of ischemic heart disease and other diseases of the circulatory system; Z83.79 Family history of other diseases of the digestive system; Z86.73 Personal history of transient ischemic attack (TIA), and cerebral infarction without residual deficits; Z79.899 Other long term (current) drug therapy; Z68.22 Body mass index [BMI] 22.0-22.9, adult

== ENCOUNTER 2019-01-25 22:42 | Emergency (ER) | payer MEDICARE ==
[~2019-01-25] VITALS: Ht 162.5 cm; Wt 63.5 kg
[~2019-01-25 22:42] MED LIST changes: +AMITRIPTYLINE100 M1 PO; +AMITRIPTYLINE50 MG PO; +CELEBREX50 MG PO
[2019-01-26] MEDS ORDERED: IBUPROFEN600 MG PO (00:57)
== END 2019-01-26 01:20 | disposition home or self-care (01) ==
LOC: ED 22:42
DX: S20.212A Contusion of left front wall of thorax, initial encounter (principal); E03.9 Hypothyroidism, unspecified; I10 Essential (primary) hypertension; Z86.718 Personal history of other venous thrombosis and embolism; Z79.899 Other long term (current) drug therapy; Z88.6 Allergy status to analgesic agent; Z88.8 Allergy status to other drugs, medicaments and biological substances; W18.39XA Other fall on same level, initial encounter; Y93.89 Activity, other specified; Y92.89 Other specified places as the place of occurrence of the external cause; Y99.8 Other external cause status

== ENCOUNTER → 2019-04-19 | Outpatient (CLI) | payer MEDICARE ==
[2019-04-19 13:34] LABS: BASO # 0.1 10*3/uL (0.0-0.1); EOS # 0.1 10*3/uL (0.0-0.4); EOS % 1.4 % (1.0-4.0); HEMATOCRIT 43.8 % (37.0-47.0); HEMOGLOBIN 13.7 g/dl (12.0-16.0); LYMPH # 1.7 10*3/uL (1.3-4.4); LYMPH % 33.2 % (27.0-41.0); MEAN CELL VOLUME 93.6 fl (81.0-99.0); MEAN CORPUSCULAR HGB 29.3 pg (27.0-31.0); MEAN CORPUSCULAR HGB CONC 31.3 g/dl (33.0-37.0); MEAN PLATELET VOLUME 10.2 fl (9.6-12.3); MONO # 0.3 10*3/uL (0.1-1.0); MONO % 6.2 % (3.0-9.0); PLATELET COUNT AUTOMATED 322 10*3/uL (130-400); RED BLOOD COUNT 4.68 10*6/uL (4.10-5.10); RED CELL DISTRI WIDTH 13.4 % (0-14.5); WHITE BLOOD COUNT 5.2 10*3/uL (4.8-10.8)
[2019-04-19 13:59] LABS: ALBUMIN 4.1 gm/dl (3.1-4.5); BUN 9 mg/dl (7-24); CHLORIDE 108 mmol/L (98-107); CHOLESTEROL 223 mg/dL (<200); CREATININE 1.05 mg/dL (0.55-1.02); POTASSIUM 3.8 mmol/L (3.5-5.1); SGOT/AST 20 IU/L (3-35); SGPT/ALT 30 U/L (12-78); SODIUM 141 mmol/L (136-145); TOTAL PROTEIN 8.3 gm/dL (6.4-8.2); TRIGLYCERIDES 372 mg/dl (<150); VLDL CHOLESTEROL 74 mg/dL (6-40)
[2019-04-19 14:06] LABS: ALKALINE PHOSPHATASE 118 U/L (45-117); FREE T4 0.87 ng/dl (0.76-1.46); HDL CHOLESTEROL 52 mg/dl (40-60); LDL CHOLESTEROL 97 mg/dL (9-159); THYROID STIM HORMONE (HS) 0.673 uIU/ml (0.358-4.75)
== END ==
LOC: LAB 12:37
PROVIDERS: Family Medicine
DX: E03.9 Hypothyroidism, unspecified (principal); R53.83 Other fatigue; R53.1 Weakness; E78.49 Other hyperlipidemia

== ENCOUNTER 2020-09-15 11:05 | Emergency (ER) | payer MEDICARE ==
[~2020-09-15] VITALS: Ht 162.5 cm; Wt 65.3 kg
== END 2020-09-15 13:45 | disposition home or self-care (01) ==
LOC: ED 11:05
DX: S80.01XA Contusion of right knee, initial encounter (principal); Z79.899 Other long term (current) drug therapy; W19.XXXA Unspecified fall, initial encounter; Y93.89 Activity, other specified; Y92.89 Other specified places as the place of occurrence of the external cause; Y99.8 Other external cause status

== ENCOUNTER 2021-06-10 11:22 | Emergency (ER) | payer MEDICARE ==
[~2021-06-10] VITALS: Ht 165.1 cm; Wt 64.4 kg
== END 2021-06-10 12:03 | disposition home or self-care (01) ==
LOC: ED 11:22
DX: S30.861A Insect bite (nonvenomous) of abdominal wall, initial encounter (principal); W57.XXXA Bitten or stung by nonvenomous insect and other nonvenomous arthropods, initial encounter; Y93.89 Activity, other specified; Y92.89 Other specified places as the place of occurrence of the external cause; Y99.8 Other external cause status